=== PATIENT | male | born 1965 | race Caucasian/White ===

== ENCOUNTER 2017-10-04 13:59 | Emergency (ER) | payer OTHER ==
[~2017-10-04] VITALS: Ht 190.5 cm; Wt 115.7 kg
[2017-10-04 14:11] VITALS: Ht 190.5 cm; Wt 115.7 kg
[2017-10-04 15:19] LABS: BASOPHIL % 0.3 % (0-2); RED CELL DISTRIBUTION WIDTH 14.2 % (11.5-14.5)
[2017-10-04 15:20] LABS: PLATELET COUNT 457 x10^3mcL (130-400)
[2017-10-04 15:25] LABS: CALCIUM 9.5 mg/dL (8.5-10.1); CARBON DIOXIDE 30.2 mmol/L (21-32); CHLORIDE SERUM 103 mmol/L (98-107); CREATININE SERUM 0.9 mg/dL (0.7-1.3); GFR1 > 60 mL/min; GLUCOSE SERUM 108 mg/dL (74-106); POTASSIUM SERUM 3.8 mmol/L (3.5-5.1); SODIUM SERUM 141 mmol/L (136-145)
[2017-10-04 15:40] LABS: ALBUMIN 3.4 g/dL (3.4-5.0); ALKALINE PHOSPHATASE 285 U/L (46-116); ALT/SGPT 55 U/L (16-63); AST/SGOT 26 U/L (15-37); BILIRUBIN TOTAL 0.45 mg/dL (0.20-1.00); TOTAL PROTEIN, SERUM 7.6 g/dL (6.4-8.2)
[2017-10-04 15:41] LABS: CK-MB 2.2 ng/mL (0-3.6)
[2017-10-04 20:22] VITALS: BP 147/83
== END 2017-10-04 20:22 | disposition short-term general hospital (02) ==
LOC: ED 13:59
PROVIDERS: Emergency Medicine
DX: J18.9 Pneumonia, unspecified organism (principal)
CPT/HCPCS: 83880; 85378; J1170; J2405; J2543; J3490; Q0092; Q9967